=== PATIENT | female | born 1970 | race Caucasian/White ===

== ENCOUNTER → 2016-12-13 | Day surgery (SDC) | payer OTHER ==
[~2016-12-13] VITALS: Ht 160 cm; Wt 80.0 kg
[~2016-12-13] MED LIST: *morphine SULFATE 8 MG/ML PERIprocedure ONLY ONE; ALPR0.5T3 PO; CHLORHEXIDINE GLUCONATE 2 % 1 PACK (2 CLOTHS) TOPICAL PRN; DO NOT ADM ANY ANTICOAGULANT DRUGS PRN; FAMOTIDINE 20 MG/2 ML VIAL ONE; INSULIN HUMAN REGULAR 1,000 UNITS/10 ML VIAL SQ PRN; LACTATED RINGER'S 1000 ML IV PRN; LIDOCAINE HCL 1% PF 5 ML AMPULE OTHER ONE; LISI20TA3 PO; METOPROLOL TARTRATE 25 MG TAB PO PRN; MIDAZOLAM HCL 2 MG/2 ML VIAL IV ONE; ONDANSETRON HCL 4 MG/2 ML VIAL IV PUSH ONE; POVIDONE IODINE 5% (ANTISEPSIS KIT) 4 APPLICATIONS EACH NARE PRN; PROPOFOL 200 MG/20 ML AMP IV ONE; SODIUM CHLORID 0.9% 500 ML IV PRN; VENL150T PO; ceFAZolin 1,000 MG/NS 100 ML IV SCH; oxyCODONE/ACETAMINOPHEN 5 MG/325 MG TAB PO PRN
--- NOTE | 2016-12-13 11:54 | PD.OP ---
Operative Report Date of Surgery: Dec 13, 2016 Preoperative Diagnosis: (1) Endometrial polyp (2) Submucous leiomyoma of uterus (3) Excessive and frequent menstruation with irregular cycle (4) Pelvic and perineal pain Postoperative Diagnosis: (1) Submucous leiomyoma of uterus (2) Excessive and frequent menstruation with irregular cycle (3) Pelvic and perineal pain Procedure: 1. hysteroscopy 2. myomectomy 3. D&C Anesthesia: ABUNDIO Surgeon: Nunu Buitrago [employer] Worker(s): OR staff Operation and Findings: IVF: 500 ml LF + IV antibiotics given prior to surgery UO: 50 ml EBL: <10 ml Findings: large fibroid inside uterine cavity Specimens: fibroid + endometrial curettings Complications: none Condition: stable Disposition: PACU Descriptions of the procedure: I discussed the risks, benefits and alternatives of the procedure with the patient and her family. Informed consent was obtained after questions were answered. She was taken to the operating room with her IV running. She was placed in the supine position and was given general anesthesia without difficulties or complications. She was then placed in the dorsal lithotomy position and was prepped and draped in the usual sterile fashion. A bivalve speculum was placed inside the patient's vagina. The anterior aspect of the cervix was grasped with a single tooth tenaculum for manipulation. The cervix was carefully dilated. A hysteroscope was introduced inside the patient' s uterus. A very large fibroid was noted in the middle of the uterine cavity. The Myosure was used to remove it. A gentle D&C was carefully done. All tissues were sent to pathology. All the instruments were removed from the uterine cavity. The cervix was noted to be hemostatic. All the instruments were removed from the patient's vagina. The patient tolerated the procedure well. She was successfully awaken from general anesthesia and was transferred to PACU in stable condition. Note: I discussed surgical findings and surgical procedure with the patient's ; his questions were answered; he verbalized understanding and agreement to the procedure done Nunu Buitrago MD Dec 13, 2016 11:54
[2016-12-13 13:34] LABS: BETA HCG QUANT 3 MIU/ML (0-5)
[2016-12-13 17:15] VITALS: BP 100/69; PULSE 68; RESP 20; TEMP 97.9; O2SAT 95
== END | disposition home or self-care (01) ==
LOC: HSDC 11:49
PROVIDERS: ATTEND Obstetrics & Gynecology
DX: D25.0 Submucous leiomyoma of uterus (principal); N92.0 Excessive and frequent menstruation with regular cycle; I10 Essential (primary) hypertension
CPT/HCPCS: 00952; 58561; 84702; 88305; J0690; J2250; J2270; J2405; J3010; J7120